=== PATIENT | male | born 1955 | race Caucasian/White ===

== ENCOUNTER 2022-07-19 00:09 | Day surgery (SDC) | payer BC, SELFPAY ==
[2022-07-11 12:54] VITALS: BP 128/76; PULSE 56; RESP 20; TEMP 37.1; O2SAT 100; BMI 27.3
--- NOTE | 2022-07-11 12:59 | PC.NURSE ---
PRE-OP INSTRUCTIONS, PLEASE READ CAREFULLY Report to the Outpatient Waiting Room, entrance under the green pavilion located off [facility], at time _0730_ on date _07/19/22_. Planned Procedure Time: _0930_. Time changes happen often and if your time is changed the preop area will call you the afternoon before. - You and your visitor will be asked to self-screen and do not enter if you have any COVID symptoms. - Only one visitor is requested with a max of two and NO children visitors are allowed at this time. - The patient visitor may be requested to leave or wait in car when not with patient due to distancing restrictions. - A mask is optional within the hospital. Patients may have clear liquids (water, carbonated beverages, clear teas, apple juice) until 3 hours prior to surgery (0630 AM) with a maximum of 20 ounces. - No food from midnight until time of surgery Take the following medications with a SIP of water the morning of surgery: _AMLODIPINE, CITALOPRAM_ Medications to discontinue _ASPIRIN PER DR. TANG'S INSTRUCTIONS_ Medications to discontinue per ANESTHESIA - _VITAMINS 3 DAYS PRIOR TO SURGERY, Date to take last dose 07/15/22_ Please no make-up, nail tamazight, hairspray, perfume, deodorant, or body powder the day of surgery. No jewelry (including any body piercings) or valuables the day of surgery, leave them at home. Please take a shower or bath the night before, or the morning of, surgery with an antibacterial soap. Wear comfortable, loose fitting clothing. Children are encouraged to wear pajamas. - Jewelry must be removed prior to entering the operating room. Rings and piercings that are not removed may be cut off. - The hospital will not accept responsibility for valuables. - Please leave all valuables, including medications, at home the day of surgery. If you are going home after surgery, a licensed waste collection driver must drive you home. - NO public transportation without another adult if you receive anesthesia. - We recommend that an adult stay with you for 24 hours following discharge. - We also recommend that you do not drive, make important decision, drink alcoholic beverages, or take any drugs that were not prescribed by your health care provider for at least 24 hours after your discharge time. Follow any additional instructions given to you from your surgeon. If you or anyone in your household have experienced Covid symptoms in the past week, please notify your surgeon or the nurse liaison at the phone number below for possible testing. Instructions given to _PATIENT_and asked if any additional questions and then verbalized understanding. Patient advised to call surgeon office or pre surgery nurse liaison [phone] if any additional questions.
--- NOTE | 2022-07-18 14:13 | WPDANESEPPF ---
Anes - Initial Pre Proc Eval Procedure: Operation Date: 07/19/22 07:30 Proposed Procedures p C5-6, C6-7 Anterior Cervical Discectomy with Fusion - Zak Hubbard MD Date/Time: 07/18/22 14:13 Surgeon: Zak Hubbard MD Pre Op Diagnosis: C5-6,C6-7 spondylosis Patient Data Age: 66 Gender: M Height: 1.65 m Weight: 74.4 kg Last Vital Signs Temp 37.1 C 07/11/22 12:54 Pulse 56 L 07/11/22 12:54 Resp 20 07/11/22 12:54 BP 128/76 07/11/22 12:54 Pulse Ox 100 07/11/22 12:54 O2 Del Method Room Air 07/11/22 12:54 Allergies Allergy/AdvReac Type Severity Reaction Status Date / Time lisinopril AdvReac Mild Cough Verified 07/19/22 06:00 Home Medications Medication Instructions Recorded Confirmed Type amlodipine 2.5 mg tablet 2.5 mg PO BID 02/14/22 07/19/22 History aspirin 81 mg chewable tablet 81 mg PO DAILY 02/14/22 07/19/22 History citalopram 10 mg tablet 10 mg PO DAILY 02/14/22 07/19/22 History losartan 100 mg tablet 100 mg PO DAILY 02/14/22 07/19/22 History multivitamin 1 tablet PO DAILY 02/14/22 07/19/22 History nitroglycerin 0.4 mg sublingual 0.4 mg sublingual Q5M PRN Chest 02/14/22 07/19/22 History tablet Pain ECG: sinus bradycardia Other studies: normal stress 07/17 ef 69% Patient hx anesthesia problems: none Family hx anesthesia problems: none Results Review: All pre-operative results and documents have been reviewed as part of the pre-operative evaluation. [facility] Past Medical History Medical History (Updated 07/18/22 @ 14:15 by Kip Negro MD) CAD (coronary artery disease) Cervical disc herniation Cervical spondylosis Coronary artery dilation Hypertension Mitral valve prolapse MEGAN (obstructive sleep apnea) Overweight (BMI 25.0-29.9) Prostate cancer Surgical History Surgical History (Updated 07/18/22 @ 14:15 by Kip Negro MD) H/O hernia repair H/O vasectomy History of coronary artery stent placement Joint replaced Family History Family History Other Hypertension Social History Social History Smoking status: Never smoker Second hand tobacco smoke exposure: No Alcohol intake: current Drinks per week: 1 Substance use: never Substance use type: does not use Living arrangements: with family Spiritual care concerns: No Anes - Eval Final PreProcedure Day of Procedure 07/18/22 14:13 Patient weight: overweight Heart: regular rate and rhythm Lungs: clear to auscultation and normal air movement Airway: Mallampati scale class II Neurological: alert and oriented Last oral intake: >/= 8 hours ASA classification: III Emergent: no Anesthetic plan: proceed Anesthesia type and monitoring: general ETT Results Review: All pre-operative results and documents have been reviewed as part of the pre-operative evaluation. Informed Consent: The patient's anesthetic plan and its attendant risks and benefits were discussed with the patient/family/POA. Questions were solicited and answers provided to the satisfaction of the patient/family/POA.
[2022-07-19] VITALS (14 sets, daily range): BP systolic 99–150; BP diastolic 49–80; PULSE 55–98; RESP 10–18; TEMP 36.1–36.7; O2SAT 96–100
--- NOTE | ~2022-07-19 | XR_ITS ---
EXAMINATION: XR fluoroscopy no charge DATE: 07/19/2022 09:26 INDICATION: Cervical discectomy. TECHNIQUE: 2 intraoperative lateral fluoroscopic views of cervical spine were obtained. I was not pre sent. Fluoroscopy exposure time was 7 seconds. COMPARISON: None. FINDINGS: There are changes of anterior fusion procedure from C5 to C7 with interbody devices and ant erior plate and screws. IMPRESSION: 1. Anterior fusion procedure from C5 to C7. Reviewed, dictated and finalized at location A. ER GUN
[2022-07-19] MEDS: LACTATED RINGERS 1,000 ML 30 ML IV CONT ×2 (06:32→09:38)
--- NOTE | 2022-07-19 07:28 | PM.IMHP ---
H&P: HPI History of Present Illness Date/Time: 07/19/22 07:28 Chief Complaint: José Luis is a 66-year-old gentleman with neck and arm pain related to disc osteophyte complex causing neurologic compression at C5-6 and C6-7 presents now for anterior cervical diskectomy and fusion at those levels. He has not changed appreciably since we saw him last. He does not have specific muscle group weakness or dermatomal numbness. He is not having bowel or bladder difficulty. Review of Systems Review of Systems: Patient denies shortness of breath, cough, fever, chills, nausea, vomiting, weight loss, weight gain, chest pain, dysuria. He has neck and arm pain as above. He has neck stiffness. His review of systems is otherwise negative on 12 systems except as noted PMFSH Past Medical History Medical History (Updated 07/18/22 @ 14:15 by Kip Negro MD) CAD (coronary artery disease) Cervical disc herniation Cervical spondylosis Coronary artery dilation Hypertension Mitral valve prolapse MEGAN (obstructive sleep apnea) Overweight (BMI 25.0-29.9) Prostate cancer Surgical History Surgical History (Updated 07/18/22 @ 14:15 by Kip Negro MD) H/O hernia repair H/O vasectomy History of coronary artery stent placement Joint replaced Family History Family History Other Hypertension Social History Social History Smoking status: Never smoker Second hand tobacco smoke exposure: No Alcohol intake: current Drinks per week: 1 Substance use: never Substance use type: does not use Living arrangements: with family Spiritual care concerns: No Meds Home Medications and Allergies Home Medications Medication Instructions Recorded Confirmed Type amlodipine 2.5 mg tablet 2.5 mg PO BID 02/14/22 07/19/22 History aspirin 81 mg chewable tablet 81 mg PO DAILY 02/14/22 07/19/22 History citalopram 10 mg tablet 10 mg PO DAILY 02/14/22 07/19/22 History losartan 100 mg tablet 100 mg PO DAILY 02/14/22 07/19/22 History multivitamin 1 tablet PO DAILY 02/14/22 07/19/22 History nitroglycerin 0.4 mg sublingual 0.4 mg sublingual Q5M PRN Chest 02/14/22 07/19/22 History tablet Pain Allergies Allergy/AdvReac Type Severity Reaction Status Date / Time lisinopril AdvReac Mild Cough Verified 07/19/22 06:00 Vital Signs Vital Signs - 24 hr 07/19/22 06:00 Temperature 97.6 F Pulse Rate 55 L Respiratory Rate 18 Blood Pressure 139/80 Pulse Oximetry 100 Oxygen Delivery Room Air Exam Narrative: Strength is 5/5 in all muscle groups the bilateral upper extremities. Sensation is intact to light touch throughout the upper extremities. Regular rate and rhythm Breathing is unlabored. Assessment and Plan Assessment and plan (1) Cervical spondylosis: Code(s): M47.812 - Spondylosis without myelopathy or radiculopathy, cervical region Status: Acute (2) Cervical disc herniation: Code(s): M50.20 - Other cervical disc displacement, unspecified cervical region Status: Acute Plan José Luis is a 66-year-old gentleman with neck and arm pain related to herniated nucleus pulposus and disc osteophyte complex causing neurologic compression at C5-6 and C6-7. He presents for anterior cervical diskectomy and fusion at those levels. I described to him again that operation, its risks, potential benefits, the operative and postoperative course in detail and answered all his questions personally. He indicates understanding and elects to proceed with that operation.
--- NOTE | 2022-07-19 07:31 | WPDHPUPDATE1 ---
History and Physical Update Update Date/Time: 07/19/22 07:31 History and Physical has been reviewed, including an updated exam of the patient. There are NO changes in the patient's condition. Risks, benefits, and alternatives have been discussed and questions answered. Patient agrees to proceed with procedure.
[2022-07-19] MEDS: ceFAZolin 2 GM/D5W 50 ML 2 GM/50 ML BAG IVPB (07:35)
[2022-07-19] MEDS: BUPIVACAINE/EPINEPHRINE 0.5% 30 ML VIAL INFILTRATE (08:16)
--- NOTE | 2022-07-19 09:32 | W.PM.PROC2 ---
Procedure Note - Detailed Date of Procedure 07/19/22 Pre-op Diagnosis C5-6,C6-7 spondylosis, herniated nucleus pulposus Post-op Diagnosis Same Procedure Performed C5-6 and C6-7 complete diskectomy and bilateral neural foraminotomy, C5-6 and C6-7 interbody arthrodesis utilizing peek interbody devices and local autograft bone and I factor, C5-6 and C6-7 anterior cervical plating with locking plate and screws Surgeon Zak Hubbard MD Critical Systems Technician [facility] Anesthesia General Indications Juanito is a 66-year-old gentleman with neck and arm pain related to the above pathology who presents for decompression and fusion from an anterior approach at C5-6 and C6-7. Description of Procedure The patient was brought to the operating room in the supine position, was sedated, intubated and placed under general anesthesia in routine fashion. The area of operation on the right side of his neck was examined, marked for incision, prepped and draped in routine sterile fashion. Incision was marked from the midline over to the medial aspect of the sternocleidomastoid muscle and curvilinear transverse fashion to fingerbreadths above the sternal notch. This area was injected with 0.5% lidocaine with [id number] epinephrine. Intravenous antibiotics given prior to incision. Incision was made with a 10 blade scalpel down to the platysma muscle. Skin was undermined and the platysma muscle divided longitudinally with its fibers using Metzenbaum scissors. A plane was then dissected medial to the sternocleidomastoid muscle down to the anterior aspect spine using the finger and Metzenbaum scissors. A verifying x-rays obtained to verify the level of operation. The longus colli muscle was dissected free of the anterior aspect of the spine in a subperiosteal plane using Bovie cautery. A Shadow [place] retractor system was placed. [place] pins were placed the C5 and C7 and distraction placed over both disc spaces simultaneously. Diskectomy and arthrodesis operations performed identically at each level. The disc space was entered using a 15 blade scalpel cutting along the margin of the bone above and below. A Midas Angel drill was used to remove an anterior osteophyte. A curved curette and pituitary rongeur were used to remove as much cartilaginous endplate and disc material as possible down to the annulus and ligament posteriorly. A Midas Angel drill was used to bur down the endplates to bleeding cortical flat surfaces as well as to begin a bony foraminotomy bilaterally. Under microscopy a curved curette and nerve hook were used to interrupt the ligament and annulus. A 2. Kerrison punch was then used to remove annulus, ligament and posterior osteophyte until it bony foraminotomy had been completed bilaterally. Lack of compression was confirmed by placing a nerve hook into the foramen on each side. This was confirmed. Disc herniation was removed during this part of the procedure as well at both levels. The disc spaces were then sized an appropriately sized interbody devices were chosen and filled with eye factor and local autograft bone dust. The 6 mm device was chosen for C5-6 and a 7 mm device for C6-7. These were then tamped into the interspaces to 1-2 mm countersink. Wax was placed over the hole in the interbody device to keep the eye factor from leaking out. A 28 mm anterior plate was chosen placed in position and secured using 614 x 4 mm anterior screws advanced into the locking mechanism the plate to hand tightness. Her the locking mechanism was then engaged at each screw. A verifying x-rays obtained to verify good position of the instrumentation and interbody devices which was confirmed. The wound was then copiously irrigated with bacitracin irrigation all bleeding stopped with bipolar and Bovie cautery and Gelfoam thrombin powder. The wound was then closed in layered fashion with 3-0 Vicryl interrupted sutures in the platysma muscle and dermis. The skin was closed with a runnin
[2022-07-19] MEDS: KCL 20 MEQ/D5/0.45% SOD CHL 1,000 ML 100 ML IV CONT ×2 (11:48→21:30)
--- NOTE | 2022-07-19 12:00 | ADMGEN ---
This patient, Juanito Saha, was admitted to [facility]01. Patient/family oriented to hospital policies and general routines including ID bracelet, bed and alarms, visiting hours, pain management, procedures, bathroom and other care routines, personal items, smoking policy, room service/diet, and visiting hours. Information on how to activate the Rapid Response Team has been discussed. Patient/Family are encouraged to report perceived risks to care and to ask questions if they do not understand what they are told or what they should do.
[2022-07-19] MEDS: HYDROcodone/acetaminophen (*CRX) 5-325 MG TABLET 1 TAB PO ×2 (14:48→21:29)
[2022-07-19] MEDS: amLODIPine BESYLATE 2.5 MG TABLET PO (17:20)
[2022-07-19] MEDS: DOCUSATE SODIUM 100 MG CAPSULE PO (21:29)
[2022-07-20 06:35] VITALS: BP 130/70; PULSE 74; RESP 16; TEMP 36.3; O2SAT 98
--- NOTE | 2022-07-20 07:35 | WPDANESPN ---
Anes - Prog Note Post-Op Date/Time: 07/20/22 07:35 Cardiovascular status: normal Respiratory status: normal Airway patency: baseline Mental status: baseline Post-Op hydration status: normal Vital Signs: Last Vital Signs Temp 97.3 F L 07/20/22 06:35 Pulse 74 07/20/22 06:35 Resp 16 07/20/22 06:35 BP 130/70 07/20/22 06:35 Pulse Ox 98 07/20/22 06:35 O2 Del Method Room Air 07/19/22 20:00 O2 Flow Rate 8 07/19/22 10:20 Pain Score (VAS): 3 I/O: Intake & Output 07/19/22 07/19/22 07/20/22 15:59 23:59 07:59 Intake Total 2540 1240 Balance 2540 1240 07/19/22 06:58 Blood Type B Positive Antibody Screen Negative Patient Feedback: Patient satisfied with anesthetic care.
[2022-07-20] MEDS: LOSARTAN POTASSIUM 100 MG TABLET PO (08:26)
[2022-07-20] MEDS: DOCUSATE SODIUM 100 MG CAPSULE PO (08:26)
[2022-07-20] MEDS: MULTIVITAMINS THERAPEUTIC TAB (*BKC) 1 TABLET PO (08:26)
[2022-07-20] MEDS: CITALOPRAM HYDROBROMIDE 10 MG TABLET PO (08:27)
[2022-07-20] MEDS: amLODIPine BESYLATE 2.5 MG TABLET PO ×2 (08:27→17:17)
[2022-07-20] MEDS: KCL 20 MEQ/D5/0.45% SOD CHL 1,000 ML 100 ML IV CONT (08:42)
[2022-07-20 16:39] VITALS: BP 126/79; PULSE 74; RESP 16; TEMP 37.2; O2SAT 99
== END 2022-07-20 18:00 | disposition home or self-care (01) ==
LOC: ANHSURGERY 07:57 → ANH3MEDSUR 11:16
PROVIDERS: PCP Pediatrics; Visit Provider Neurological Surgery
PROC: (CPT 63030; principal; 2022-07-19 07:30)
DX: M50.222 Other cervical disc displacement at C5-C6 level (principal); M50.223 Other cervical disc displacement at C6-C7 level; M47.812 Spondylosis without myelopathy or radiculopathy, cervical region; I25.10 Atherosclerotic heart disease of native coronary artery without angina pectoris; I10 Essential (primary) hypertension; I34.1 Nonrheumatic mitral (valve) prolapse; G47.33 Obstructive sleep apnea (adult) (pediatric); Z85.46 Personal history of malignant neoplasm of prostate; Z95.5 Presence of coronary angioplasty implant and graft; Z79.82 Long term (current) use of aspirin
CPT/HCPCS: 22551; 22552; 22853 ×2; 20936; 36415; 86850; 86900; 86901; 97161; 97165; 99199; A9270; C1713; J0330; J0690; J1100; J1170; J2250; J2405; J2704; J2710; J3010; J3480; J7120